=== PATIENT | male | born 2000 | race Caucasian/White ===

== ENCOUNTER 2018-02-01 15:11 | Observation (INO) | payer OTHER ==
[2018-02-01] MEDS: ONDANSETRON 4MG/2ML VIAL (J2405) IV ×2 (15:50→18:15)
[2018-02-01] MEDS: NS 1,000 ML IV ×3 (15:51→21:01)
[2018-02-01 16:14] LABS: BASO % 0.3 % (0.0-1.0); EOS % 0.2 % (0.0-3.0); HEMATOCRIT 51.8 % (42.0-52.0); HEMOGLOBIN 17.6 g/dl (13.5-17.5); IMMATURE GRANULOCYTE % 0.4 % (0-3.0); LYMPH # 1.1 10^3/uL (1.5-6.5); LYMPH % 11.8 % (24.0-44.0); MEAN CORPUSCULAR VOLUME 85.3 fl (80.0-96.0); MONO # 0.6 10^3/uL (0.0-0.8); MONO % 6.6 % (0.0-5.0); NEUTROPHILS # 7.2 10^3/uL (1.8-7.7); NEUTROPHILS % 80.7 % (36.0-66.0); PLATELET COUNT, AUTOMATED 301 10^3/uL (150-450); RED BLOOD COUNT 6.07 10^6/uL (4.30-6.10); RED CELL DISTRIBUTION WIDTH 12.6 % (11.5-14.5); WHITE BLOOD COUNT 8.9 10^3/uL (4.0-10.0)
[2018-02-01 16:39] LABS: ALBUMIN 4.8 GM/DL (3.2-5.2); ALKALINE PHOSPHATASE 177 U/L (45-117); ALT/SGPT 61 U/L (12-78); AMYLASE 25 U/L (25-115); AST/SGOT 71 U/L (7-37); BILIRUBIN,DIRECT 0.3 MG/DL (0.0-0.2); BILIRUBIN,TOTAL 1.4 MG/DL (0.2-1.0); BLOOD UREA NITROGEN 27 MG/DL (7-18); CALCIUM LEVEL 9.6 MG/DL (8.5-10.1); CARBON DIOXIDE LEVEL 28 MEQ/L (21-32); CHLORIDE LEVEL 95 MEQ/L (98-107); CREATININE FOR GFR 1.09 MG/DL (0.70-1.30); GLUCOSE, FASTING 131 MG/DL (70-100); LIPASE 52 U/L (73-393); POTASSIUM SERUM 4.2 MEQ/L (3.5-5.1); SODIUM LEVEL 135 MEQ/L (136-145); TOTAL PROTEIN 8.8 GM/DL (6.4-8.2); TROPONIN I < 0.02 NG/ML (< 0.10)
[2018-02-01 16:48] LABS: CPK CREATINE PHOSPHOKINASE 1567 U/L (39-308); MB/CK RELATIVE INDEX 1.14 (< OR =4)
[2018-02-01 16:51] LABS: ANION GAP 12 MEQ/L (8-16)
[2018-02-01] MEDS ORDERED: ISOVUE-370 76% 100ML VIAL (Q9967) As Ordered (19:07)
[2018-02-01 20:18] LABS: KETONE, URINE AUTO RFX 2+ mg/dL (NEGATIVE); LEUKOCYTE ESTERASE UR AUTO RFX NEGATIVE (NEGATIVE); NITRITE, URINE AUTO RFX NEGATIVE (NEGATIVE); RBC, URINE AUTO RFX 3 /HPF (0-3); SPECIFIC GRAVITY UR AUTO RFX 1.041 (1.002-1.035); SQUAM EPITHELIAL CELL UR AURFX 0 /HPF (0-6); WBC, URINE AUTO RFX 1 /HPF (0-3)
[2018-02-01] MEDS: MORPHINE 4 MG/ML 1ML VIAL/SYRINGE (J2270) IV (21:00)
[2018-02-01] MEDS: GI COCKTAIL 50ML BTL(HYOSCYAMINE/MAALOX/LIDOCAINE VISCOUS)(1:3:1) PO (21:01)
[2018-02-01] MEDS: PANTOPRAZOLE 40MG INJ (PROTONIX) (C9113) IV (21:06)
[2018-02-01] MEDS ORDERED: NS 1,000 ML IV (21:25)
[2018-02-01] MEDS ORDERED: ACETAMINOPHEN TAB 650MG DOSE (2X325MG) PO (21:30)
[2018-02-02] MEDS: ONDANSETRON 4MG/2ML VIAL (J2405) IV ×3 (01:27→18:10)
[2018-02-02] MEDS: NS 1,000 ML IV (02:26)
[2018-02-02] MEDS: SUCRALFATE SUSP 1GM/10ML UD PO ×4 (07:47→21:26)
[2018-02-02] MEDS: ENOXAPARIN 40 MG/0.4 ML SYRINGE (J1650) SC (07:48)
[2018-02-02] MEDS: KCL 20MEQ in NS 1000ML 1,000 ML IV ×2 (07:48→14:47)
[2018-02-02 07:50] LABS: HEMATOCRIT 39.4 % (42.0-52.0); MEAN CORPUSCULAR VOLUME 87.8 fl (80.0-96.0); PLATELET COUNT, AUTOMATED 212 10^3/uL (150-450); RED BLOOD COUNT 4.49 10^6/uL (4.30-6.10); RED CELL DISTRIBUTION WIDTH 12.7 % (11.5-14.5); WHITE BLOOD COUNT 6.4 10^3/uL (4.0-10.0)
[2018-02-02 08:17] LABS: ALBUMIN 2.9 GM/DL (3.2-5.2); ALBUMIN/GLOBULIN RATIO 1.21 (1.00-1.93); ALKALINE PHOSPHATASE 105 U/L (45-117); ALT/SGPT 38 U/L (12-78); ANION GAP 7 MEQ/L (8-16); AST/SGOT 35 U/L (7-37); BLOOD UREA NITROGEN 12 MG/DL (7-18); CALCIUM LEVEL 7.7 MG/DL (8.5-10.1); CARBON DIOXIDE LEVEL 26 MEQ/L (21-32); CHLORIDE LEVEL 110 MEQ/L (98-107); CPK CREATINE PHOSPHOKINASE 731 U/L (39-308); GLUCOSE, FASTING 78 MG/DL (70-100); MAGNESIUM LEVEL 1.8 MG/DL (1.8-2.4); POTASSIUM SERUM 4.4 MEQ/L (3.5-5.1); SODIUM LEVEL 143 MEQ/L (136-145); TOTAL PROTEIN 5.3 GM/DL (6.4-8.2); TROPONIN I 0.02 NG/ML (< 0.10)
[2018-02-02 10:12] LABS: CK-MB VALUE MASS 6.1 NG/ML (<3.6); MB/CK RELATIVE INDEX 0.83 (< OR =4)
[2018-02-02 11:56] LABS: AMPHETAMINES LEVEL URINE NEGATIVE (NEGATIVE); BARBITURATES URINE NEGATIVE (NEGATIVE); BENZODIAZEPINES URINE NEGATIVE (NEGATIVE); CANNABINOIDS URINE NEGATIVE (NEGATIVE); COCAINE METABOLITE URINE NEGATIVE (NEGATIVE); METHADONE URINE NEGATIVE (NEGATIVE); OPIATES URINE NEGATIVE (NEGATIVE); PHENCYCLIDINE URINE NEGATIVE (NEGATIVE)
[2018-02-02 15:43] LABS: CK-MB VALUE MASS 5.2 NG/ML (<3.6); CPK CREATINE PHOSPHOKINASE 641 U/L (39-308); MB/CK RELATIVE INDEX 0.81 (< OR =4); TROPONIN I 0.02 NG/ML (< 0.10)
[2018-02-02] MEDS: PROCHLORPERAZINE 10 MG/2 ML VIAL (J0780) IV (15:55)
[2018-02-02] MEDS: PANTOPRAZOLE 40MG INJ (PROTONIX) (C9113) IV (21:26)
[2018-02-03 00:55] LABS: CPK CREATINE PHOSPHOKINASE 429 U/L (39-308); TROPONIN I < 0.02 NG/ML (< 0.10)
[2018-02-03 00:56] LABS: CK-MB VALUE MASS 3.5 NG/ML (<3.6); MB/CK RELATIVE INDEX 0.81 (< OR =4)
[2018-02-03 06:57] LABS: HEMATOCRIT 40.2 % (42.0-52.0); HEMOGLOBIN 13.4 g/dl (13.5-17.5); MEAN CORPUSCULAR HGB CONC 33.3 g/dl (32.0-36.5); PLATELET COUNT, AUTOMATED 202 10^3/uL (150-450); RED BLOOD COUNT 4.62 10^6/uL (4.30-6.10); RED CELL DISTRIBUTION WIDTH 12.3 % (11.5-14.5); WHITE BLOOD COUNT 4.8 10^3/uL (4.0-10.0)
[2018-02-03 07:21] LABS: ALBUMIN 2.9 GM/DL (3.2-5.2); ALBUMIN/GLOBULIN RATIO 1.16 (1.00-1.93); ALKALINE PHOSPHATASE 109 U/L (45-117); ALT/SGPT 35 U/L (12-78); ANION GAP 10 MEQ/L (8-16); AST/SGOT 25 U/L (7-37); BILIRUBIN,TOTAL 0.7 MG/DL (0.2-1.0); BLOOD UREA NITROGEN 6 MG/DL (7-18); CALCIUM LEVEL 8.3 MG/DL (8.5-10.1); CARBON DIOXIDE LEVEL 26 MEQ/L (21-32); CHLORIDE LEVEL 107 MEQ/L (98-107); CREATININE FOR GFR 0.58 MG/DL (0.70-1.30); GLUCOSE, FASTING 87 MG/DL (70-100); MAGNESIUM LEVEL 1.6 MG/DL (1.8-2.4); POTASSIUM SERUM 4.3 MEQ/L (3.5-5.1); SODIUM LEVEL 143 MEQ/L (136-145); TOTAL PROTEIN 5.4 GM/DL (6.4-8.2)
[2018-02-03] MEDS: SUCRALFATE SUSP 1GM/10ML UD PO ×2 (07:50→12:29)
[2018-02-03] MEDS: ENOXAPARIN 40 MG/0.4 ML SYRINGE (J1650) SC (09:14)
== END 2018-02-03 15:13 | disposition home or self-care (01) ==
LOC: M ED 15:11 → M ED INP 21:25 → M PED 22:45
DX: R11.2 Nausea with vomiting, unspecified (principal); R10.11 Right upper quadrant pain; K52.9 Noninfective gastroenteritis and colitis, unspecified; M62.82 Rhabdomyolysis; T67.3XXA Heat exhaustion, anhydrotic, initial encounter; Z79.899 Other long term (current) drug therapy
CPT/HCPCS: C9113

== ENCOUNTER 2018-04-09 14:33 | Emergency (ER) | payer OTHER ==
[2018-04-09] MEDS: NS 1,000 ML IV (17:30)
[2018-04-09] MEDS: ONDANSETRON 4MG/2ML VIAL (J2405) IV (17:30)
[2018-04-09 18:09] LABS: BASO % 0.6 % (0.0-1.0); EOS # 0.1 10^3/uL (0.0-0.50); EOS % 1.5 % (0.0-3.0); HEMATOCRIT 46.1 % (42.0-52.0); HEMOGLOBIN 15.7 g/dl (13.5-17.5); IMMATURE GRANULOCYTE % 0.3 % (0-3.0); LYMPH # 2.3 10^3/uL (1.5-6.5); LYMPH % 32.9 % (24.0-44.0); MEAN CORPUSCULAR HGB CONC 34.1 g/dl (32.0-36.5); MEAN CORPUSCULAR VOLUME 85.1 fl (80.0-96.0); MONO # 0.4 10^3/uL (0.0-0.8); MONO % 5.5 % (0.0-5.0); NEUTROPHILS # 4.1 10^3/uL (1.8-7.7); NEUTROPHILS % 59.2 % (36.0-66.0); PLATELET COUNT, AUTOMATED 313 10^3/uL (150-450); RED BLOOD COUNT 5.42 10^6/uL (4.30-6.10); RED CELL DISTRIBUTION WIDTH 12.9 % (11.5-14.5); WHITE BLOOD COUNT 6.9 10^3/uL (4.0-10.0)
[2018-04-09 18:16] LABS: INR 1.01; PROTHROMBIN TIME 13.4 SECONDS (12.1-14.4)
[2018-04-09 18:38] LABS: ALBUMIN 4.7 GM/DL (3.2-5.2); ALBUMIN/GLOBULIN RATIO 1.38 (1.00-1.93); ALKALINE PHOSPHATASE 142 U/L (45-117); ALT/SGPT 28 U/L (12-78); ANION GAP 6 MEQ/L (8-16); AST/SGOT 11 U/L (7-37); BILIRUBIN,DIRECT 0.2 MG/DL (0.0-0.2); BILIRUBIN,TOTAL 0.5 MG/DL (0.2-1.0); BLOOD UREA NITROGEN 13 MG/DL (7-18); CALCIUM LEVEL 9.3 MG/DL (8.5-10.1); CARBON DIOXIDE LEVEL 31 MEQ/L (21-32); CHLORIDE LEVEL 103 MEQ/L (98-107); CREATININE FOR GFR 0.79 MG/DL (0.70-1.30); GLUCOSE, FASTING 97 MG/DL (70-100); POTASSIUM SERUM 3.6 MEQ/L (3.5-5.1); SODIUM LEVEL 140 MEQ/L (136-145); TOTAL PROTEIN 8.1 GM/DL (6.4-8.2)
[2018-04-09 18:40] LABS: CPK CREATINE PHOSPHOKINASE 87 U/L (39-308); LIPASE 44 U/L (73-393); MB/CK RELATIVE INDEX 1.15 (< OR =4); TROPONIN I < 0.02 NG/ML (< 0.10)
[2018-04-09] MEDS ORDERED: ISOVUE-370 76% 100ML VIAL (Q9967) As Ordered (18:43)
== END 2018-04-09 19:42 | disposition home or self-care (01) ==
LOC: M ED 14:33
DX: K20.9 Esophagitis, unspecified (principal); R11.10 Vomiting, unspecified
CPT/HCPCS: J2405

== ENCOUNTER 2018-05-25 12:31 | Day surgery (SDC) | payer OTHER ==
[~2018-05-25] VITALS: Ht 170.2 cm; Wt 68.9 kg
[~2018-05-25 12:31] MED LIST: MELA10CA PO; NS 1,000 ML IV ONE; PANT40TA3 PO; PRIL20TA2 PO; SUCR1TA PO; ZOFR4TAB14 PO; ZOFR4TAB16 PO
[2018-05-25] MEDS ORDERED: PROPOFOL 200 MG/20 ML VIAL As Ordered ONE (14:07)
[2018-05-25] MEDS ORDERED: LIDOCAINE 2% INJ 100 MG/5 ML SDV (FOR ANES.) As Ordered ONE (14:09)
[2018-05-25] MEDS ORDERED: fentaNYL 100 MCG/2 ML INJECTION (J3010) As Ordered ONE (14:44)
[2018-05-25] MEDS ORDERED: ONDANSETRON 4MG/2ML VIAL (J2405) As Ordered ONE (14:47)
--- NOTE | 2018-05-25 15:22 | ROOR ---
Patient Name: Anderas Adam Procedure Date: 05/25/2018 3:00 PM Date of : 2000 Age: 18 Room: [facility] Gender: Male Note Status: Finalized Procedure: Upper GI endoscopy Indications: Persistent vomiting of unknown cause, Abnormal CT of the GI tract Providers: John Lynn MD Referring MD: PINEDA SIMPSON MD Requesting Provider: Medicines: Monitored Anesthesia Care Complications: No immediate complications. Procedure: Pre-Anesthesia Assessment: - Prior to the procedure, a History and Physical was performed, and patient medications and allergies were reviewed. The patient is competent. The risks and benefits of the procedure and the sedation options and risks were discussed with the patient. All questions were answered and informed consent was obtained. Patient identification and proposed procedure were verified by the physician, the nurse and the anesthesiologist in the procedure room. Mental Status Examination: alert and oriented. Airway Examination: normal oropharyngeal airway and neck mobility. Respiratory Examination: clear to auscultation. CV Examination: normal. Prophylactic Antibiotics: The patient does not require prophylactic antibiotics. Prior Anticoagulants: The patient has taken no previous anticoagulant or antiplatelet agents. ASA Grade Assessment: II - A patient with mild systemic disease. After reviewing the risks and benefits, the patient was deemed in satisfactory condition to undergo the procedure. The anesthesia plan was to use monitored anesthesia care (MAC). Immediately prior to administration of medications, the patient was re-assessed for adequacy to receive sedatives. The heart rate, respiratory rate, oxygen saturations, blood pressure, adequacy of pulmonary ventilation, and response to care were monitored throughout the procedure. The physical status of the patient was re-assessed after the procedure. The Endoscope was introduced through the mouth, and advanced to the second part of duodenum. The upper GI endoscopy was accomplished without difficulty. The patient tolerated the procedure well. Findings: LA Grade A (one or more mucosal breaks less than 5 mm, not extending between tops of 2 mucosal folds) esophagitis with no bleeding was found in the distal esophagus. Biopsies were taken with a cold forceps for histology. Verification of patient identification for the specimen was done by the physician and nurse using the patient's name, date and medical record number. Estimated blood loss was minimal. The Z-line was irregular and was found 39 cm from the incisors. One 20 mm submucosal papule (nodule) with no bleeding and no stigmata of recent bleeding was found in the gastric antrum. Biopsies were taken with a cold forceps for histology. The duodenal bulb and second portion of the duodenum were normal. Biopsies were taken with a cold forceps for histology. Impression: - LA Grade A reflux esophagitis. Biopsied. - Z-line irregular, 39 cm from the incisors. - One submucosal papule (nodule) found in the stomach. Biopsied. - Normal duodenal bulb and second portion of the duodenum. Biopsied. Recommendation: - Patient has a contact number available for emergencies. The signs and symptoms of potential delayed complications were discussed with the patient. Return to normal activities tomorrow. Written discharge instructions were provided to the patient. - Resume previous diet. - Continue present medications. - Await pathology results. - Follow an antireflux regimen. - Perform an upper endoscopic ultrasound (UEUS) at appointment to be scheduled. - Based on the biopsy results you will receive a phone call from GI clinic in 2-3 weeks to review the pathology results AND/OR your results will be faxed to your Primary care physician. - Return to primary care physician. John Lynn MD John Lynn MD 05/25/2018 3:21:35 PM This report has been signed electronically. Number of Addenda: 0 Note Initiated On: 05/25/2018 3:00 PM Estimated Blood Loss: Estimated blood loss was minimal.
[2018-05-25 15:45] VITALS: BP 132/87
== END 2018-05-25 15:52 | disposition home or self-care (01) ==
LOC: M OPP 12:31
PROVIDERS: ATTEND Internal Medicine Gastroenterology
DX: K21.0 Gastro-esophageal reflux disease with esophagitis (principal); K22.8 Other specified diseases of esophagus; K31.89 Other diseases of stomach and duodenum; R93.3 Abnormal findings on diagnostic imaging of other parts of digestive tract; R11.10 Vomiting, unspecified; R01.1 Cardiac murmur, unspecified; Z80.0 Family history of malignant neoplasm of digestive organs
CPT/HCPCS: 43239; 88305; J2405; J3010

== ENCOUNTER 2019-07-16 05:46 | Inpatient (IN) | payer OTHER ==
[~2019-07-16] VITALS: Ht 170.2 cm; Wt 65.9 kg
[2019-07-16] VITALS (10 sets, daily range): BP systolic 122–135; BP diastolic 58–76
[~2019-07-16 05:46] MED LIST changes: -NS 1,000 ML IV ONE
[2019-07-16] MEDS ORDERED: ACET1TAB55 PO (05:53)
[2019-07-16] MEDS ORDERED: IBUP80TA PO (05:53)
[2019-07-16] MEDS ORDERED: [UNRECOGNIZED DRUG - CODE] IM (05:53)
[2019-07-16] MEDS ORDERED: NS 1,000 ML IV ONE (06:30)
[2019-07-16] MEDS ORDERED: ACETAMINOPHEN TAB 650MG DOSE (2X325MG) PO ONE (06:30)
[2019-07-16 06:37] LABS: HEMATOCRIT 49.3 % (42.0-52.0); HEMOGLOBIN 16.6 g/dl (13.5-17.5); MEAN CORPUSCULAR HEMOGLOBIN 28.4 pg (27.0-33.0); MEAN CORPUSCULAR HGB CONC 33.7 g/dl (32.0-36.5); MEAN CORPUSCULAR VOLUME 84.4 fl (80.0-96.0); PLATELET COUNT, AUTOMATED 171 10^3/uL (150-450); RED BLOOD COUNT 5.84 10^6/uL (4.30-6.10); WHITE BLOOD COUNT 15.8 10^3/uL (4.0-10.0)
[2019-07-16 06:50] LABS: ALBUMIN 3.4 GM/DL (3.2-5.2); ALT/SGPT 691 U/L (12-78); BILIRUBIN,DIRECT 2.8 MG/DL (0.0-0.2); BILIRUBIN,TOTAL 3.3 MG/DL (0.2-1.0); BLOOD UREA NITROGEN 10 MG/DL (7-18); CALCIUM LEVEL 8.6 MG/DL (8.5-10.1); CARBON DIOXIDE LEVEL 27 MEQ/L (21-32); CHLORIDE LEVEL 95 MEQ/L (98-107); CREATININE FOR GFR 1.16 MG/DL (0.70-1.30); GLOMERULAR FILTRATION RATE > 60.0 (>60); GLUCOSE, FASTING 121 MG/DL (70-100); LIPASE 89 U/L (73-393); POTASSIUM SERUM 4.2 MEQ/L (3.5-5.1); SODIUM LEVEL 133 MEQ/L (136-145); TOTAL PROTEIN 7.7 GM/DL (6.4-8.2)
[2019-07-16] MEDS ORDERED: ONDANSETRON 4MG/2ML VIAL (J2405) IV ONE (07:00)
[2019-07-16] MEDS ORDERED: KETOROLAC 30 MG/ML VIAL (J1885) IV ONE (07:00)
[2019-07-16] MEDS ORDERED: methylPREDNISolone INJ 125 MG/2 ML VIAL (J2930) IV ONE (07:00)
[2019-07-16 07:07] LABS: ATYPICAL LYMPH 20 % (0-5); LYMPHOCYTES 49 % (16-44); MONOCYTES 1 % (0-5); NEUTROPHILS 28 % (28-66)
[2019-07-16 07:08] LABS: PLATELET ESTIMATE NORMAL (NORMAL)
--- NOTE | 2019-07-16 07:52 | REPVR ---
PROCEDURE INFORMATION: Exam: US Abdomen Limited Exam date and time: 07/16/2019 7:35 AM Age: 19 years old Clinical indication: Vomiting; Abdominal pain; Additional Info: + mono with abd pain and vomiting R/O ruptured spleen TECHNIQUE: Imaging protocol: Real-time ultrasound of the abdomen with image documentation. Examination is focused on the region of clinical interest. COMPARISON: Abdomen, limited US 02/02/2018 2:16 PM FINDINGS: Left kidney: Left kidney measures 10.8 cm in length. No renal masses. No left hydronephrosis. Spleen: Spleen measures 15.9 x 13.1 x 6.0 cm. No splenic lesions. No splenic rupture. There are multiple splenules present. Intraperitoneal space: No perisplenic fluid. IMPRESSION: 1. Moderate splenomegaly. 2. No splenic rupture. 3. No perisplenic fluid. Electronically signed by: Rylee Torres On 07/16/2019 07:51:51 AM
--- NOTE | 2019-07-16 08:59 | HPEPDOC ---
[facility] Medical History & Physical Date of Admission Jul 16, 2019 Date of Service: Jul 16, 2019 History and Physical CHIEF COMPLAINT: malaise, sob HISTORY OF PRESENT ILLNESS: 19 yo male with no PMHx, recently diagnosed with infectious mononucleosis, presents for worsening malaise, shortness of breath. He admits to drooling, nausea, vomiting. Denies chest pain, headaches, changes in vision. PAST MEDICAL HISTORY: Denies ALLERGIES: Please see below. REVIEW OF SYSTEMS: Negative except as per HPI. HOME MEDICATIONS: Please see below. PHYSICAL EXAMINATION: VITAL SIGNS: See below General: NAD, lying comfortably in bed HEENT: NC/AT, edematousnarrowed airway/edematous tonsils, EOMI, PERRL, cervical lymphadenopathy Lungs: CTA B/L Heart: +S1S2, RRR Abd: soft, mild tenderness, ND, +BS LABORATORY DATA: See below. MICROBIOLOGY: Please see below. ASSESSMENT: 19 yo male recently diagnosed with mono, admitted for concerns of compromised airway from lymphadenopathy. #SOB - continuous pulse ox - elevated head of bed - decadron 10 IV q8h - NPO/IVF - ENT c/s pending - admit to ICU #mono - atypical lymphocytosis - supportive care in addition to above #transaminitis - secondary to mono #DVT prophylaxis - not indicated Vital Signs Vital Signs Date Time Temp Pulse Resp B/P (MAP) Pulse Ox O2 Delivery O2 Flow Rate FiO2 07/16/19 08:01 98.6 99 20 118/57 (77) 96 Room Air Laboratory Data Labs 24H Laboratory Tests 2 07/16/19 06:20: Lymphocytes # (Auto) , Nucleated Red Blood Cells % (auto) 0.0, Neutrophils 28, Band Neutrophils 2, Lymphocytes (Manual) 49H, Monocytes (Manual) 1, Atypical Lymphocytes 20H, Red Blood Cell Morphology NORMAL, Platelet Estimate NORMAL, Anion Gap 11, Glomerular Filtration Rate > 60.0, Calcium Level 8.6, Total Bilirubin 3.3H, Direct Bilirubin 2.8H, Aspartate Amino Transf (AST/SGOT) 363H, Alanine Aminotransferase (ALT/SGPT) 691H, Alkaline Phosphatase 290H, Total Protein 7.7, Albumin 3.4, Albumin/Globulin Ratio 0.79L, Lipase 89 CBC/BMP Laboratory Tests 07/16/19 06:20 Home Medications Scheduled Melatonin (Melatonin) 10 Mg Cap, 10 MG PO QHS Penicillin G Benzathine (Bicillin l-A) 1,200,000 Unit/2 Ml Syringe, 1 DOSE IM ONCE RECEIVED AT [facility] Scheduled PRN Acetaminophen (Acetaminophen) 325 Mg Tablet, 325 MG PO TID PRN for PAIN / FEVER Ibuprofen (Ibuprofen) 800 Mg Tablet, 800 MG PO TID PRN for PAIN / FEVER Allergies Coded Allergies: No Known Allergies (Unverified , 05/15/18) A-FIB/CHADSVASC A-FIB History Current/History of A-Fib/PAF?: No EAGLE TRAORE MD Jul 16, 2019 08:58
[2019-07-16] MEDS: NS 1,000 ML IV SCH ×2 (10:12→20:15)
[2019-07-16] MEDS ORDERED: ONDANSETRON 4MG/2ML VIAL (J2405) IV PRN (10:45)
--- NOTE | 2019-07-16 12:00 | CR.PDOC ---
General Surgery Consultation Date of Consultation 07/16/19 History and Physical CONSULT REPORT FOR: ICU to otolaryngology REASON FOR CONSULTATION: Infectious mononucleosis with shortness of breath HISTORY OF PRESENT ILLNESS: This is a 19-year-old male with recent history of fatigue, sore throat and fever his throat got acutely worse over the last 24 hours and has been having lots of pain when he swallows so much so that he is choosing to spit his saliva out. He also started feeling that it was difficult to breathe and so he came into the ER. He was diagnosed with mononucleosis. Due to the fact that he is not tolerating liquids. He was admitted to the hospital and we chose to admit him to the ICU due to his concerns about shortness of breath. He has right now, however breathing fine and resting comfortably. He does not have any history of tonsil infections in the past. Never had any head and neck surgeries. No previous history of sleep apnea PAST MEDICAL HISTORY: 1. None. PAST SURGICAL HISTORY: INCLUDES: 1. None. PREVIOUS ANESTHESIA REACTIONS: None ALLERGIES: Please see below. FAMILY HISTORY: Noncontributory. HOME MEDICATIONS: Please see below. REVIEW OF SYSTEMS: GENERAL: [Denies chills, reports weight gain, reports feeling febrile yesterday]. HEENT: Denies blurred vision and double vision. See HPI NECK: Denies any neck pain]. CARDIOVASCULAR: [Denies chest pain and palpitations]. MUSCULOSKELETAL: [Denies arthralgias, back pain and thrombophlebitis]. SKIN: [Denies rash]. NEUROLOGIC: [Denies headache, stroke and transient ischemic attack]. PSYCHIATRIC: [Denies anxiety and depression]. ENDOCRINE: [Denies thyroid disease]. HEMATOLOGY/ONCOLOGY: [Denies bleeding or clotting disorder]. HEART: [Denies any chest pains, palpitations, paroxysmal dyspnea, orthopnea]. PULMONARY: [Denies chronic cough, dyspnea and wheezing]. GASTROINTESTINAL: [Denies rectal bleeding, family history of colon cancer, constipation, diarrhea, dysphagia, heartburn and jaundice]. GENITOURINARY: [Denies dysuria, frequency, hematuria and nocturia]. ENDOCRINE: [Denies polydipsia, polyphagia, polyuria, heat or cold intolerance]. INFECTIOUS: [Denies any recent upper respiratory tract infection, UTI, need for use of antibiotics]. NUTRITION: [Reports good appetite]. PHYSICAL EXAMINATION: VITALS SIGNS: Please see below. GENERAL APPEARANCE:[Patient seen, laying in bed, awake, alert, and oriented. Comfortable, in no acute distress]. FOCUSED HEENT: EARS: Bilateral external auditory canals are clear and patent with normal appearance of the bilateral tympanic membranes. No evidence of middle ear effusion bilaterally. NOSE: Bilateral nares are clear and patent. Normal appearance of bilateral inferior turbinates. Septum is intact and midline. ORAL CAVITY: Normal appearance of the gingiva and dentition. Tongue is freely mobile. Floor mouth is soft. Tonsils are 4+ with extensive exudates. NECK: Neck is soft and supple. There is evidence of moderate lymphadenopathy bilaterally in levels 2 through 4. Normal examination of the thyroid. Submandibular and parotid glands LABORATORY DATA: Please see below. IMAGING STUDIES: None. IMPRESSION AND PLAN: 1. Infectious mononucleosis. No need for surgical intervention at this time, the patient has a safe airway, and for the next few days. May have intermittent apneic episodes while sleeping as well as persistent snoring, however, she should not have any issues with oxygen saturation. As long as he is kept and an inclined position, I believe that it is safe to transfer them out of the ICU. He should be on 10 mg of Decadron every 8 hours for the next 24 hours and if after 24 hours. He is improving and tolerating enough liquids. He can be discharged home with a steroid taper for pain control. I recommend NSAIDs such as liquid Motrin or liquid, Advil above. All fluid resuscitation is paramount. I discussed with the patient that although she may start to feel better over the course of the next week. His tonsils may remain enlarged and as long as they do not incur recurrent infections and she is not having sleep apnea is no need to follow up if he has concerns in the future he can feel free to follow up with the ENT department Vital Signs Vital Signs Date Time Temp Pulse Resp B/P (MAP) Pulse Ox O2 Delivery O2 Flow Rate FiO2 07/16/19 09:01 64 22 94 Nasal Cannula 2.0 07/16/19 09:00 117/59 (78) 07/16/19 08:01 98.6 Laboratory Data Labs 24H Laboratory Tests 2 07/16/19 06:20: Lymphocytes # (Auto) , Nucleated Red Blood Cells % (auto) 0.0, Neutrophils 28, Band Neutrophils 2, Lymphocytes (Manual) 49H, Monocytes (Manual) 1, Atypical Lymphocytes 20H, Red Blood Cell Morphology NORMAL, Platelet Estimate NORMAL, Anion Gap 11, Glomerular Filtration Rate > 60.0, Calcium Level 8.6, Total Bilirubin 3.3H, Direct Bilirubin 2.8H, Aspartate Amino Transf (AST/SGOT) 363H, Alanine Aminotransferase (ALT/SGPT) 691H, Alkaline Phosphatase 290H, Total Protein 7.7, Albumin 3.4, Albumin/Globulin Ratio 0.79L, Lipase 89 CBC/BMP Laboratory Tests 07/16/19 06:20 Home Medications Scheduled Melatonin (Melatonin) 10 Mg Cap, 10 MG PO QHS, (Reported) Penicillin G Benzathine (Bicillin l-A) 1,200,000 Unit/2 Ml Syringe, 1 DOSE IM ONCE, (Reported) RECEIVED AT [facility] Scheduled PRN Acetaminophen (Acetaminophen) 325 Mg Tablet, 325 MG PO TID PRN for PAIN / FEVER, (Reported) Ibuprofen (Ibuprofen) 800 Mg Tablet, 800 MG PO TID PRN for PAIN / FEVER, (Reported) Allergies Coded Allergies: No Known Allergies (Unverified , 05/15/18) EMILY HERNANDEZ MD Jul 16, 2019 12:00
[2019-07-16] MEDS ORDERED: KETOROLAC 30 MG/ML VIAL (J1885) IV SCH (14:00)
[2019-07-16] MEDS: KETOROLAC 30 MG/ML VIAL (J1885) IV SCH ×2 (14:02→22:45)
[2019-07-16] MEDS: dexameTHASONE 20 MG/5 ML VIAL (J1100) IV SCH ×2 (14:05→22:44)
[2019-07-16] MEDS: CHLORASEPTIC SPRAY MT PRN (21:15)
[2019-07-17] VITALS (8 sets, daily range): BP systolic 120–140; BP diastolic 60–80; O2SAT 99
[2019-07-17] MEDS: CHLORASEPTIC SPRAY MT PRN ×2 (02:00)
[2019-07-17] MEDS: KETOROLAC 30 MG/ML VIAL (J1885) IV PRN ×3 (02:29→16:46)
[2019-07-17 05:24] LABS: HEMATOCRIT 44.7 % (42.0-52.0); HEMOGLOBIN 14.7 g/dl (13.5-17.5); MEAN CORPUSCULAR HEMOGLOBIN 28.3 pg (27.0-33.0); MEAN CORPUSCULAR HGB CONC 32.9 g/dl (32.0-36.5); PLATELET COUNT, AUTOMATED 172 10^3/uL (150-450); WHITE BLOOD COUNT 11.9 10^3/uL (4.0-10.0)
[2019-07-17] MEDS: dexameTHASONE 20 MG/5 ML VIAL (J1100) IV SCH ×3 (05:38→21:53)
[2019-07-17] MEDS: NS 1,000 ML IV SCH ×3 (05:38→21:53)
[2019-07-17 05:53] LABS: ALBUMIN 2.5 GM/DL (3.2-5.2); ALT/SGPT 425 U/L (12-78); BILIRUBIN,TOTAL 1.8 MG/DL (0.2-1.0); BLOOD UREA NITROGEN 18 MG/DL (7-18); CALCIUM LEVEL 7.8 MG/DL (8.5-10.1); CARBON DIOXIDE LEVEL 26 MEQ/L (21-32); CHLORIDE LEVEL 107 MEQ/L (98-107); CREATININE FOR GFR 0.77 MG/DL (0.70-1.30); GLOMERULAR FILTRATION RATE > 60.0 (>60); GLUCOSE, FASTING 139 MG/DL (70-100); POTASSIUM SERUM 4.6 MEQ/L (3.5-5.1); SODIUM LEVEL 140 MEQ/L (136-145); TOTAL PROTEIN 6.5 GM/DL (6.4-8.2)
--- NOTE | 2019-07-17 08:58 | IPNPDOC ---
Text Note Date of Service The patient was seen on 07/17/19. NOTE SUBJECTIVE: Patient was seen at bedside today. He was unable to sleep last night due to continuing throat pain. He continues to cough up "chunks of blood" and complain of chest heaviness, but has otherwise not had dyspnea. His mouth is more comfortable with the moistened mouth swabs. He states that he has been able to urinate, but the urine remains very dark in color. He has not passed any stool. Holistically, pt states that his complaints have not changed, but he is more comfortable now that he has been receiving care. Pt has no further complaints at this time. OBJECTIVE: VITALS: Please see below. GENERAL: Pt appears stated age, pale, and is propped up in bed in no acute distress. HEENT: Normocephalic, atraumatic. Multiple purulent lesions present in throat. Significant and profound posterior cervical and anterior cervical chain lymphadenopathy with tenderness. Pt's breath is pungent. CARDIOVASCULAR: Regular rate and rhythm. No murmurs, rubs, or gallops. PULMONARY: Clear to auscultation b/l. No wheezes, rales, or rhonchi. ABDOMEN: Soft , nontender, normal bowel sounds. EXTREMITIES: No peripheral edema. PSYCHIATRIC: Pt is calm and cooperative. Full affect. Pt answers questions appropriately. ASSESSMENT: Pt is a 19-year-old male with recent diagnosis of infectious mononucleosis who presented to the [facility] emergency department complaining of worsening dyspnea, dysphagia, odynophagia, and coughing up blood clots and has been admitted for protection of airway and supportive care. PLAN: 1. Dyspnea and dysphagia and odynophagia. secondary to hugely enlarged enlarged tonsils with exudates secondary to mononucleosis - Consultation by ENT was requested and completed by Brendon Persaud MD, and his assistance is appreciated. - Continue supportive IV fluids. Advised maintaining elevated head position, No Airway compromise seen. - Pt made himself NPO several days ago per throat pain and has therefore had very little nutrition recently. He tried taking sips, but did not tolerate it due to pain. We will plan to upgrade his diet to clear liquids if possible. Continuing pain management with ketorolac, phenol spray, IV morphine, and viscous lidocaine. - Continue dexamethasone 10 mg IV q8h for the next 2-3 days and monitor for reduction of swelling. - Downgrade to med/surg. 2. Infectious mononucleosis - Continue supportive care. IVF, pain control. 3. Elevated transaminases, improving - Secondary to #2. Trending down. 5. DVT prophylaxis: Subcutaneous enoxaparin DISPOSITION: Discharge pending clinical improvement, likely >48 hours from now. VS,Fishbone, I+O VS, Fishbone, I+O Laboratory Tests 07/17/19 05:00 Vital Signs Date Time Temp Pulse Resp B/P (MAP) Pulse Ox O2 Delivery O2 Flow Rate FiO2 07/17/19 05:00 73 18 125/63 (83) 97 Room Air 07/17/19 04:00 98.3 07/16/19 09:01 2.0 I&O- Last 24 Hours up to 6 AM 07/17/19 06:00 Intake Total 1800 ml Output Total 725 ml Balance 1075 ml GME ATTESTATION GME ATTESTATION My faculty preceptor for this patient encounter was physically present during the encounter and was fully available. All aspects of the patient interview, examination, medical decision making process, and medical care plan development were reviewed and approved by the faculty preceptor. The faculty preceptor is aware and concurs with the plan as stated in the body of this note and will attest to such by his/her cosignature. ATTENDING NOTE I personally saw and evaluated the patient. I agree with the findings and the plan of care documented above in the resident/ medical student note. ABILIO SHARMA OMS-III Jul 17, 2019 07:55 WANDY APPIAH MD Jul 17, 2019 20:46
[2019-07-17] MEDS ORDERED: MORPHINE 2 MG/ML 1ML VIAL (J2270) IV ONE (10:30)
[2019-07-17] MEDS: MORPHINE 2 MG/ML 1ML VIAL (J2270) IV PRN ×3 (14:58→20:01)
[2019-07-17] MEDS ORDERED: MORPHINE 4 MG/ML 1ML VIAL/SYRINGE (J2270) IV PRN (15:00)
[2019-07-17] MEDS: LIDOCAINE VISCOUS 2% SOLN 15ML UDC SS PRN (20:01)
[2019-07-18] VITALS (7 sets, daily range): BP systolic 120–139; BP diastolic 65–71; O2SAT 95–96
[2019-07-18] MEDS: KETOROLAC 30 MG/ML VIAL (J1885) IV PRN ×4 (01:19→21:24)
[2019-07-18] MEDS: ACETAMINOPHEN 650 MG SUPP PR PRN ×2 (03:12→06:39)
[2019-07-18] MEDS: NS 1,000 ML IV SCH ×5 (03:12→19:08)
[2019-07-18] MEDS: MORPHINE 2 MG/ML 1ML VIAL (J2270) IV PRN ×4 (06:21→19:08)
[2019-07-18] MEDS: dexameTHASONE 20 MG/5 ML VIAL (J1100) IV SCH ×3 (06:22→21:24)
[2019-07-18 07:35] LABS: HEMOGLOBIN 13.5 g/dl (13.5-17.5); MEAN CORPUSCULAR HEMOGLOBIN 27.8 pg (27.0-33.0); MEAN CORPUSCULAR HGB CONC 32.1 g/dl (32.0-36.5); MEAN CORPUSCULAR VOLUME 86.6 fl (80.0-96.0); PLATELET COUNT, AUTOMATED 194 10^3/uL (150-450); RED BLOOD COUNT 4.85 10^6/uL (4.30-6.10); WHITE BLOOD COUNT 8.4 10^3/uL (4.0-10.0)
[2019-07-18] MEDS: ENOXAPARIN 40 MG/0.4 ML SYRINGE (J1650) SC SCH (07:46)
[2019-07-18] MEDS: LIDOCAINE VISCOUS 2% SOLN 15ML UDC SS PRN ×2 (07:46→12:05)
[2019-07-18 07:58] LABS: BLOOD UREA NITROGEN 14 MG/DL (7-18); CALCIUM LEVEL 7.8 MG/DL (8.5-10.1); CARBON DIOXIDE LEVEL 27 MEQ/L (21-32); CHLORIDE LEVEL 108 MEQ/L (98-107); CREATININE FOR GFR 0.82 MG/DL (0.70-1.30); GLOMERULAR FILTRATION RATE > 60.0 (>60); GLUCOSE, FASTING 122 MG/DL (70-100); MAGNESIUM LEVEL 2.2 MG/DL (1.8-2.4); PHOSPHORUS LEVEL 2.4 MG/DL (2.5-4.9); POTASSIUM SERUM 4.8 MEQ/L (3.5-5.1); SODIUM LEVEL 140 MEQ/L (136-145)
[2019-07-18 08:08] LABS: ATYPICAL LYMPH 6 % (0-5); BASOPHILS 1 % (0-1); LYMPHOCYTES 24 % (16-44); MONOCYTES 12 % (0-5); NEUTROPHILS 54 % (28-66)
[2019-07-18 08:09] LABS: ANISOCYTOSIS 1+; PLATELET ESTIMATE NORMAL (NORMAL)
--- NOTE | 2019-07-18 10:15 | IPNPDOC ---
Text Note Date of Service The patient was seen on 07/18/19. NOTE SUBJECTIVE: Patient was seen at bedside today. He continues to cough up "chunks of blood" and complain of chest heaviness, but has otherwise not had dyspnea. His mouth is more comfortable with the moistened mouth swabs, and he has been tolerating popsicles. He states that he has been able to urinate, but the urine remains very dark in color. He has not passed any stool. Pt states that he has been feeling feverish. Pt has no further complaints at this time. OBJECTIVE: VITALS: Please see below. GENERAL: Pt appears stated age, pale, and is propped up in bed in no acute d istress. HEENT: Normocephalic, atraumatic. Multiple purulent lesions present in throat. Significant and profound posterior cervical and anterior cervical chain lymphadenopathy with tenderness. Pt's breath is pungent. Mild nasal congestion present. Nasal turbinates erythematous and slightly boggy. Pt is almost exclusively mouth breathing. CARDIOVASCULAR: Regular rate and rhythm. No murmurs, rubs, or gallops. PULMONARY: Clear to auscultation b/l. No wheezes, rales, or rhonchi. ABDOMEN: No rashes, bumps, or bruises. Bowel sounds present in all 4 quadrants. Soft, nontender. EXTREMITIES: No peripheral edema. PSYCHIATRIC: Pt is calm and cooperative. Full affect. Pt answers questions appropriately. ASSESSMENT: Pt is a 19-year-old male with recent diagnosis of infectious mononucleosis who presented to the [facility] emergency department complaining of worsening dyspnea, dysphagia, odynophagia, and coughing up blood clots and has been admitted for protection of airway and supportive care. PLAN: 1. Dyspnea, dysphagia, and odynophagia secondary to hugely enlarged enlarged tonsils with exudates secondary to mononucleosis - Consultation by ENT was requested and completed by Brendon Persaud MD, and his assistance is appreciated. - No airway compromise evident. Mouth dryness exacerbated by consistent mouth breathing. Nasal passages show mild congestion. Ordered fluticasone nasal spray to promote nasal breathing. Ordered humidified O2 to improve mouth dryness. - Continue supportive IV fluids and maintain elevated head position. Pt has been tolerating popsicles. We will plan to upgrade his diet to clear liquids if possible. - Continuing pain management with ketorolac, phenol spray, IV morphine, and viscous lidocaine. - Continue dexamethasone 10 mg IV q8h for the next 24 hours and monitor for reduction of swelling. 2. Infectious mononucleosis - Continue supportive care. IVF, pain control. 3. Elevated transaminases, improving - Secondary to #2. Trending down. 5. DVT prophylaxis: Subcutaneous enoxaparin DISPOSITION: Discharge pending clinical improvement, likely >48 hours from now. VS,Fishbone, I+O VS, Fishbone, I+O Laboratory Tests 07/18/19 07:23 Vital Signs Date Time Temp Pulse Resp B/P (MAP) Pulse Ox O2 Delivery O2 Flow Rate FiO2 07/18/19 07:30 100.8 07/18/19 06:31 20 98 Room Air 07/18/19 04:00 98 130/70 (90) 07/16/19 09:01 2.0 I&O- Last 24 Hours up to 6 AM 07/18/19 06:00 Intake Total 3100 ml Output Total 1300 ml Balance 1800 ml GME ATTESTATION GME ATTESTATION My faculty preceptor for this patient encounter was physically present during the encounter and was fully available. All aspects of the patient interview, examination, medical decision making process, and medical care plan development were reviewed and approved by the faculty preceptor. The faculty preceptor is aware and concurs with the plan as stated in the body of this note and will attest to such by his/her cosignature. ATTENDING NOTE I personally saw and evaluated the patient. I agree with the findings and the plan of care documented above in the resident's note ABILIO SHARMA-III Jul 18, 2019 07:59 WANDY APPIAH MD Jul 19, 2019 11:53
[2019-07-18] MEDS: FLUTICASONE PROP 0.05% NASAL SPRAY 16 GM (FLONASE) NARES SCH ×2 (16:23→21:25)
[2019-07-19] MEDS: NS 1,000 ML IV SCH ×2 (05:24→09:51)
[2019-07-19] MEDS: KETOROLAC 30 MG/ML VIAL (J1885) IV PRN (05:24)
[2019-07-19] MEDS: dexameTHASONE 20 MG/5 ML VIAL (J1100) IV SCH ×2 (05:24→14:55)
[2019-07-19 06:45] VITALS: BP 140/64
[2019-07-19 07:02] LABS: HEMOGLOBIN 12.4 g/dl (13.5-17.5); MEAN CORPUSCULAR HEMOGLOBIN 28.4 pg (27.0-33.0); MEAN CORPUSCULAR HGB CONC 33.5 g/dl (32.0-36.5); MEAN CORPUSCULAR VOLUME 84.9 fl (80.0-96.0); PLATELET COUNT, AUTOMATED 207 10^3/uL (150-450); RED BLOOD COUNT 4.36 10^6/uL (4.30-6.10); WHITE BLOOD COUNT 9.2 10^3/uL (4.0-10.0)
[2019-07-19 07:24] LABS: BLOOD UREA NITROGEN 11 MG/DL (7-18); CALCIUM LEVEL 7.3 MG/DL (8.5-10.1); CARBON DIOXIDE LEVEL 24 MEQ/L (21-32); CHLORIDE LEVEL 105 MEQ/L (98-107); CREATININE FOR GFR 0.73 MG/DL (0.70-1.30); GLOMERULAR FILTRATION RATE > 60.0 (>60); GLUCOSE, FASTING 121 MG/DL (70-100); MAGNESIUM LEVEL 1.8 MG/DL (1.8-2.4); PHOSPHORUS LEVEL 2.7 MG/DL (2.5-4.9); POTASSIUM SERUM 4.2 MEQ/L (3.5-5.1); SODIUM LEVEL 137 MEQ/L (136-145)
[2019-07-19 07:30] LABS: ATYPICAL LYMPH 25 % (0-5); LYMPHOCYTES 15 % (16-44); METAMYELOCYTES 1 % (0-0); MONOCYTES 9 % (0-5); NEUTROPHILS 50 % (28-66)
[2019-07-19 07:31] LABS: ANISOCYTOSIS 1+; PLATELET ESTIMATE NORMAL (NORMAL)
[2019-07-19] MEDS: ENOXAPARIN 40 MG/0.4 ML SYRINGE (J1650) SC SCH (09:50)
[2019-07-19] MEDS: FLUTICASONE PROP 0.05% NASAL SPRAY 16 GM (FLONASE) NARES SCH (09:50)
--- NOTE | 2019-07-19 10:09 | IPNPDOC ---
Text Note Date of Service The patient was seen on 07/19/19. NOTE SUBJECTIVE: Patient was seen at bedside today. He states that he has not been dyspneic, and his sensation of chest heaviness has improved. He states that his cough produces only a scant amount of blood at this point. He was advanced to a full liquid diet, and he has been able to eat some ice cream and applesauce. He has had no changes in urinary habits, and he has been able to pass nonbloody stool. Pt has no further complaints at this time. OBJECTIVE: VITALS: Please see below. GENERAL: Pt appears stated age, pale, and is propped up in bed in no acute distress. HEENT: Normocephalic, atraumatic. Multiple purulent lesions present in throat. Significant and profound posterior cervical and anterior cervical chain lymphadenopathy with tenderness. Pt's breath is pungent. Mild nasal congestion present. Pt is almost exclusively mouth breathing. CARDIOVASCULAR: Regular rate and rhythm. No murmurs, rubs, or gallops. PULMONARY: Clear to auscultation b/l. No wheezes, rales, or rhonchi. ABDOMEN: No rashes, bumps, or bruises. Bowel sounds present in all 4 quadrants. Soft, nontender. EXTREMITIES: No peripheral edema. PSYCHIATRIC: Pt is calm and cooperative. Full affect. Pt answers questions appropriately. ASSESSMENT: Pt is a 19-year-old male with recent diagnosis of infectious mononucleosis who presented to the [facility] emergency department complaining of worsening dyspnea, dysphagia, odynophagia, and coughing up blood clots and has been admitted for protection of airway and supportive care. PLAN: 1. Dyspnea, dysphagia, and odynophagia secondary to hugely enlarged enlarged tonsils with exudates secondary to mononucleosis - Consultation by ENT was requested and completed by Brendon Persaud MD, and his assistance is appreciated. - No airway compromise evident. Continue fluticasone nasal spray. - Continue supportive IV fluids and maintain elevated head position. Pt had moderate tolerance of full liquids diet today. - Continuing pain management with ketorolac, phenol spray, IV morphine, and viscous lidocaine. - If he continues to tolerate full liquids well, his steroid taper will begin today. Otherwise, we will reassess and consider starting the taper tomorrow. 2. Infectious mononucleosis - Continue supportive care. IVF, pain control. 3. Elevated transaminases, improving - Secondary to #2. Trending down. 5. DVT prophylaxis: Subcutaneous enoxaparin DISPOSITION: Discharge likely within 24-48 hours if continuing to tolerate full liquids diet. VS,Fishbone, I+O VS, Fishbone, I+O Laboratory Tests 07/19/19 06:25 Vital Signs Date Time Temp Pulse Resp B/P (MAP) Pulse Ox O2 Delivery O2 Flow Rate FiO2 07/19/19 06:45 98.6 84 20 140/64 (89) 97 Room Air 07/16/19 09:01 2.0 I&O- Last 24 Hours up to 6 AM 07/19/19 06:00 Intake Total 2000 ml Output Total 1850 ml Balance 150 ml GME ATTESTATION GME ATTESTATION My faculty preceptor for this patient encounter was physically present during the encounter and was fully available. All aspects of the patient interview, examination, medical decision making process, and medical care plan development were reviewed and approved by the faculty preceptor. The faculty preceptor is aware and concurs with the plan as stated in the body of this note and will attest to such by his/her cosignature. ABILIO SHARMA OMS-III Jul 19, 2019 07:44
[2019-07-19] MEDS ORDERED: ACETAMINOPHEN TAB 650MG DOSE (2X325MG) PO ONE (12:00)
[2019-07-19] MEDS: CHLORASEPTIC SPRAY MT PRN (12:05)
[2019-07-19] MEDS ORDERED: IBUP0.77 PO (12:51)
[2019-07-19] MEDS ORDERED: RABE1TAB PO (12:51)
[2019-07-19] MEDS ORDERED: PRED10TA2 PO (12:51)
[2019-07-19] MEDS ORDERED: CHLORSP MT (12:53)
[2019-07-19 14:00] VITALS: BP 154/98
--- NOTE | 2019-07-19 14:09 | DS.PDOC ---
Discharge Summary General Date of Admission Jul 16, 2019 at 08:46 Date of Discharge Jul 19, 2019 Attending Physician: WANDY APPIAH MD Specialist/Consultants Involve: EMILY HERNANDEZ MD Discharge Summary PROCEDURES PERFORMED DURING STAY: None. ADMITTING DIAGNOSES: 1. Dyspnea 2. Infectious mononucleosis 3. Elevated transaminases DISCHARGE DIAGNOSES: 1. Dyspnea, dysphagia, and odynophagia secondary to enlarged enlarged tonsils with exudates secondary to mononucleosis, improving 2. Dehydration secondary to poor oral intake, resolved 3. Infectious mononucleosis 4. Elevated transaminases, improving COMPLICATIONS/CHIEF COMPLAINT: SOB. HISTORY OF PRESENT ILLNESS: Patient is a 19-year-old male with no significant past medical history who was recently diagnosed with infectious mononucleosis and presented himself to the emergency department complaining of worsening malaise, dyspnea, drooling, nausea, vomiting, chest heaviness, and coughing up "bloody chunks." He stated that his nausea and vomiting was provoked by his vigorous episodes of coughing. Pt stated that he was unable to eat or drink for the 5 days before admission due to extreme odynophagia. He denied chest pain, headaches, and changes in vision. HOSPITAL COURSE: Pt was admitted to the intensive care unit for monitoring of respiratory status and supportive care. He was treated with IV steroids, fluid resuscitation, and pain management. His elevated transaminases began to trend down, he tolerated slow advancement of his diet to full liquids, and his respiratory status was monitored closely. His sputum improved from the "bloody chunks" to scant traces of blood. On day of discharge, he was stable, tolerating a full liquid diet, and not dyspneic. DISCHARGE MEDICATIONS: Please see below. ALLERGIES: Please see below. PHYSICAL EXAMINATION ON DISCHARGE: VITAL SIGNS: Please see below. GENERAL: Pt appears stated age, pale, and is propped up in bed in no acute distress. HEENT: Normocephalic, atraumatic. Multiple purulent lesions present in throat. Significant and profound posterior cervical and anterior cervical chain lymphadenopathy with tenderness. Pt's breath is pungent. Mild nasal congestion present. Pt is almost exclusively mouth breathing. CARDIOVASCULAR: Regular rate and rhythm. No murmurs, rubs, or gallops. PULMONARY: Clear to auscultation b/l. No wheezes, rales, or rhonchi. ABDOMEN: No rashes, bumps, or bruises. Bowel sounds present in all 4 quadrants. Soft, nontender. EXTREMITIES: No peripheral edema. PSYCHIATRIC: Pt is calm and cooperative. Full affect. Pt answers questions appropriately. LABORATORY DATA: Please see below. IMAGING: Abdominal ultrasound, per report: "Moderate splenomegaly. No splenic rupture. No perisplenic fluid." PROGNOSIS: Fair ACTIVITY: No contact sports or other activity which may result in abdominal tr auma. DIET: Full liquids, advance as tolerated. DISPOSITION: Discharge home. DISCHARGE INSTRUCTIONS: 1. Follow-up with primary care provider in 7-10 days. 2. Continue to advance diet as tolerated. 3. Return to emergency department in case of worsening pain, shortness of breath, or inability to eat/drink. ITEMS TO FOLLOWUP ON ON OUTPATIENT: Resolution of infectious mononucleosis. DISCHARGE CONDITION: Stable. TIME SPENT ON DISCHARGE: 35 minutes. Vital Signs/I&Os Vital Signs Date Time Temp Pulse Resp B/P (MAP) Pulse Ox O2 Delivery O2 Flow Rate FiO2 07/19/19 06:45 98.6 84 20 140/64 (89) 97 Room Air 07/16/19 09:01 2.0 I&O- Last 24 Hours up to 6 AM 07/19/19 06:00 Intake Total 2000 ml Output Total 1850 ml Balance 150 ml Laboratory Data Labs 24H Laboratory Tests 2 07/19/19 06:25: Nucleated Red Blood Cells % (auto) 0.0, Neutrophils 50, Lymphocytes (Manual) 15L, Monocytes (Manual) 9H, Metamyelocytes 1H, Atypical Lymphocytes 25H, Anisocytosis 1+, Platelet Estimate NORMAL, Anion Gap 8, Glomerular Filtration Ra te > 60.0, Calcium Level 7.3L, Phosphorus Level 2.7, Magnesium Level 1.8 CBC/BMP Laboratory Tests 07/19/19 06:25 Microbiology Microbiology 07/17/19 Group A Streptococcus Screen ([facility]) - Final, Complete 07/17/19 Group A Streptococcus Screen ([facility]) - Final, Complete Discharge Medications Scheduled Ibuprofen (Children's Ibuprofen) 100 Mg/5 Ml Oral.susp, 20 ML PO Q8H Prednisone (Prednisone) 10 Mg Tablet, 10 MG PO TAPER Take 4 tabs daily x 3 days, then 3 tabs daily x 3 days, then 2 tabs daily x 3 days, then 1 tab daily x 3 days and stop Rabeprazole Sodium (Rabeprazole Sodium) 20 Mg Tablet.dr, 1 TAB PO DAILY Scheduled PRN Phenol (Sore Throat [place]) 177 Ml [place], 1 SPRAY MT Q2HP PRN for SORE THROAT Allergies Coded Allergies: No Known Allergies (Unverified , 05/15/18) GME ATTESTATION GME ATTESTATION My faculty preceptor for this patient encounter was physically present during the encounter and was fully available. All aspects of the patient interview, examination, medical decision making process, and medical care plan development were reviewed and approved by the faculty preceptor. The faculty preceptor is aware and concurs with the plan as stated in the body of this note and will attest to such by his/her cosignature. ATTENDING NOTE I personally saw and evaluated the patient. I agree with the findings and the plan of care documented above in the resident's note. i personally spent 35 min utes in counselling and patient and coordinating his discharge. ABILIO SHARMA S-III Jul 19, 2019 14:09 WANDY APPIAH MD Jul 20, 2019 09:45
== END 2019-07-19 16:23 | disposition home or self-care (01) | DRG 866 ==
LOC: M ED 05:46 → M ED INP 08:46 → ENRESERV 09:03 → M ICU 09:29 → M PED 07-17 16:15 → M MS5PR 07-18 15:50
PROVIDERS: ADMIT Internal Medicine; ATTEND Internal Medicine Nephrology
DX: B27.90 Infectious mononucleosis, unspecified without complication (principal); E86.0 Dehydration; R13.10 Dysphagia, unspecified; R06.02 Shortness of breath; Z79.899 Other long term (current) drug therapy; R74.0 Nonspecific elevation of levels of transaminase and lactic acid dehydrogenase [LDH]

== ENCOUNTER 2019-07-21 08:35 | Inpatient (IN) | payer OTHER ==
[~2019-07-21] VITALS: Ht 172.7 cm; Wt 65.7 kg
[~2019-07-21 08:35] MED LIST changes: +ACET1TAB55 PO; +CHLORSP MT; +IBUP0.77 PO; +IBUP80TA PO; +PRED10TA2 PO; +RABE1TAB PO; +[UNRECOGNIZED DRUG - CODE] IM
[2019-07-21] MEDS ORDERED: NS 1,000 ML IV ONE ×2 (09:00→09:15)
[2019-07-21] MEDS ORDERED: LANSOPRAZOLE SUSPENSION 30 MG/10 ML ORAL SYRINGE (FIRST-LANSOPRAZOLE) PO SCH (09:00)
[2019-07-21] MEDS ORDERED: METOCLOPRAMIDE INJ 10MG/2ML VIAL (J2765) IV ONE (09:00)
[2019-07-21] MEDS ORDERED: ACETAMINOPHEN 500 MG TAB PO ONE (09:15)
[2019-07-21 09:28] LABS: HEMATOCRIT 44.1 % (42.0-52.0); HEMOGLOBIN 14.4 g/dl (13.5-17.5); MEAN CORPUSCULAR HEMOGLOBIN 27.7 pg (27.0-33.0); MEAN CORPUSCULAR HGB CONC 32.7 g/dl (32.0-36.5); MEAN CORPUSCULAR VOLUME 84.8 fl (80.0-96.0); PLATELET COUNT, AUTOMATED 183 10^3/uL (150-450)
--- NOTE | 2019-07-21 09:37 | REP ---
PA and lateral chest: Comparison is 04/09/2018. The lung cosme are clear. The cardiac size is normal. The alma rosa, mediastinum, and skeletal structures are unremarkable. Impression: Negative PA and lateral chest. There is no interval change. Electronically Signed by Odin Vargas MD 07/21/2019 09:29 A
[2019-07-21 09:52] LABS: ALBUMIN 2.5 GM/DL (3.2-5.2); ALT/SGPT 209 U/L (12-78); BILIRUBIN,TOTAL 1.8 MG/DL (0.2-1.0); BLOOD UREA NITROGEN 10 MG/DL (7-18); CALCIUM LEVEL 7.5 MG/DL (8.5-10.1); CARBON DIOXIDE LEVEL 28 MEQ/L (21-32); CHLORIDE LEVEL 96 MEQ/L (98-107); CREATININE FOR GFR 0.78 MG/DL (0.70-1.30); GLOMERULAR FILTRATION RATE > 60.0 (>60); GLUCOSE, FASTING 114 MG/DL (70-100); POTASSIUM SERUM 3.8 MEQ/L (3.5-5.1); SODIUM LEVEL 133 MEQ/L (136-145); TOTAL PROTEIN 6.5 GM/DL (6.4-8.2)
[2019-07-21 10:04] LABS: INFLUENZA A AMPLIFICATION NEGATIVE (NEGATIVE); INFLUENZA B AMPLIFICATION NEGATIVE (NEGATIVE)
[2019-07-21 10:06] LABS: ATYPICAL LYMPH 25 % (0-5); LYMPHOCYTES 30 % (16-44); MONOCYTES 11 % (0-5); NEUTROPHILS 30 % (28-66); PLATELET ESTIMATE NORMAL (NORMAL)
[2019-07-21] MEDS ORDERED: KETOROLAC 30 MG/ML VIAL (J1885) IV ONE (10:30)
[2019-07-21] MEDS ORDERED: ISOVUE-370 76% 100ML VIAL (Q9967) As Ordered ONE (10:58)
--- NOTE | 2019-07-21 11:35 | REPVR ---
PROCEDURE INFORMATION: Exam: CT Neck With Contrast Exam date and time: 07/21/2019 11:14 AM Age: 19 years old Clinical indication: Dyspnea / difficulty breathing; Additional info: Sore throat fever R/O abscess TECHNIQUE: Imaging protocol: Computed tomography images of the neck with intravenous contrast. Radiation optimization: All CT scans at this facility use at least one of these dose optimization techniques: automated exposure control; mA and/or kV adjustment per patient size (includes targeted exams where dose is matched to clinical indication); or iterative reconstruction. Contrast material: ISOVUE 370; Contrast volume: 75 ml; Contrast route: IV; COMPARISON: No relevant prior studies available. FINDINGS: Nasal cavity: There is marked enlargement of the adenoid and palatine tonsils, filling the nasopharynx and extending through the choana into the posterior nasal cavity bilaterally. The left palatine tonsil is heterogeneous with multiple locules of gas throughout the edematous tonsil likely from spontaneous perforation or iatrogenic abscess drainage. A 0.9 x 0.7 by 1.1 cm peritonsillar fluid collection remains in the more lateral aspect of the left palatine tonsils. Nasopharynx: Tonsillar enlargement severely narrows the nasopharyngeal and moderately narrows the or pharyngeal airway. Oropharynx: See Nasal Cavity Finding. Hypopharynx: Mucosal hyperenhancement throughout the pharynx and hypopharynx. Larynx: Unremarkable. Normal epiglottis. Retropharyngeal space: Unremarkable. Submandibular/Parotid glands: Normal. Glands are normal in size. Thyroid: Normal. No enlarged or calcified nodules. Lymph nodes: Extensive cervical lymphadenopathy, measuring up to 2.2 cm in the right level 2 region. No necrotic adenopathy. Trachea: Visualized trachea is unremarkable. Lungs: Unremarkable as visualized. Bones/joints: There is a 1.8 x 1.1 x 0.9 cm nonspecific but nonaggressive appearing peripherally sclerotic lesion in the left mandibular body posteriorly with a narrow zone of transition. Other findings: Study is moderately degraded by motion artifact. IMPRESSION: 1. Pharyngitis and severe tonsillitis with marked edema of the tonsils filling the nasopharynx and narrowing the airway. Spontaneous versus iatrogenic drainage of a left palatine tonsillar abscess, with small volume fluid remaining laterally. 2. Extensive cervical lymphadenopathy, which may be reactive although is greater than would be expected. Recommend clinical follow up to resolution. Electronically signed by: Trace Mcpherson On 07/21/2019 11:37:13 AM
[2019-07-21] MEDS ORDERED: CHLO0.5L MT (12:49)
[2019-07-21] MEDS ORDERED: ONDANSETRON 4 MG ORAL DISINTEGRATING TAB (Q0162 PER 1MG) SL PRN (13:30)
[2019-07-21 14:30] VITALS: BP 142/72
[2019-07-21] MEDS: D5W/0.9% SODIUM CHLORIDE 1,000 ML IV SCH ×2 (14:34→23:12)
[2019-07-21] MEDS ORDERED: ACETAMINOPHEN 650 MG SUPP PR PRN (15:00)
--- NOTE | 2019-07-21 15:02 | HPEPDOC ---
General Date of Admission Jul 21, 2019 at 13:10 Date of Service: Jul 21, 2019 Chief Complaint The patient is a 19-year-old male admitted with a reason for visit of Acute Follicular Tonsillitis Infectious [place]. 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 He was seen by ENT then and was given a steroid taper, no antibiotics as all his cultures were negative. He comes back today as again in severe pain and unable to swallow liquids. Says his is again coughing while he is trying to swallow. He did say he took the steroid yesterday as instructed. he was noted to be febrile in the ed to 101. He also complained of again coughing up blood all night and also of having black diarrhea. He also complained of severe bad breath and draining of pus from the tonsils. CT of the neck showed Pharyngitis and severe tonsillitis with marked edema of the tonsils filling the nasopharynx and narrowing the airway. Spontaneous versus iatrogenic drainage of a left palatine tonsillar abscess, with small volume fluid remaining laterally. Extensive cervical lymphadenopathy, which may be reactive although is greater than would be expected. Recommend clinical follow up to resolution. He was admitted for Peritonsillar abscess, severe tonsillitis, pharyngitis, severe infectious mononucleosis and unable to tolerate po diet, dehydration and questionable GIB. Home Medications Scheduled PRN Phenol (Chloraseptic) 177 Ml [place].pump, 1 SPRAY MT Q2H PRN for SORE THROAT, (Reported) Allergies Coded Allergies: No Known Allergies (Unverified , 05/15/18) Past Medical History Medical History Reflux esophagitis. Infectious mononucleosis. Family History Significant Family History: Diabetes (father), Heart disease (mother from heart failure) Social History * Smoker: Denies Alcohol: rarely A-FIB/CHADSVASC A-FIB History Current/History of A-Fib/PAF?: No Review of Systems Constitutional: Reports: Fever, Weakness, Fatigue Eyes: Denies: Pain, Vision change ENT: Reports: Dysphagia, Sore Throat Skin: Denies: Rash, Lesions, Breakdown Pulmonary: Reports: Cough; Denies: Dyspnea Cardiovascular: Denies: Chest Pain, Palpitations, Orthopnea, Paroxysmal Noc. Dyspnea, Lt Headedness Gastrointestinal: Reports: Diarrhea, Melena; Denies: Nausea, Vomiting, Abdominal Pain Genitourinary: Denies: Dysuria, Frequency, Incontinence, Retention Hematologic: Denies: Bruising, Bleeding Excessively Neurological: Denies: Weakness, Numbness, Change in speech, Confusion Physical Examination General Exam: Positive: Alert, Cooperative, No Acute Distress Eye Exam: Positive: PERRLA, Conjunctiva & lids normal, EOMI; Negative: Sclera icteric ENT Exam: Positive: Atraumatic, Tongue Midline, Pharyngeal Edema, Nares Patent, Other ENT (bilateral enlaged tonsils with pustules and drainage of pus seen more on the left, severe bad odor. ) Neck Exam: Positive: Supple, Lymphadenopathy (bilateral cervica lymph adenopathy); Negative: JVD, thyromegaly Chest Exam: Positive: Clear to auscultation, Normal air movement Heart Exam: Positive: Rate Normal, Regular Rhythm, Normal S1, Normal S2; Negative: Murmurs, Rubs Abdomen Exam: Positive: Normal bowel sounds, Soft; Negative: Tenderness, Hepatospenomegaly Extremity Exam: Positive: Normal pulses; Negative: Clubbing, Cyanosis, Edema Skin Exam: Positive: Nl turgor and temperature; Negative: Breakdown, Lesion Vital Signs Vital Signs Date Time Temp Pulse Resp B/P (MAP) Pulse Ox O2 Delivery O2 Flow Rate FiO2 07/21/19 14:10 137/65 (89) 07/21/19 14:10 97.5 07/21/19 13:50 51 20 95 Room Air Laboratory Data Labs 24H Laboratory Tests 2 07/21/19 09:01: Lymphocytes # (Auto) , Nucleated Red Blood Cells % (auto) 0.0, Neutrophils 30, Band Neutrophils 4, Lymphocytes (Manual) 30, Monocytes (Manual) 11H, Atypical Lymphocytes 25H, Platelet Estimate NORMAL, Anion Gap 9, Glomerular Filtration Rate > 60.0, Calcium Level 7.5L, Total Bilirubin 1.8H, Aspartate Amino Transf (AST/SGOT) 89H, Alanine Aminotransferase (ALT/SGPT) 209H, Alkaline Phosphatase 170H, Total Protein 6.5, Albumin 2.5L, Albumin/Globulin Ratio 0.63L 07/21/19 09:04: Lactic Acid Level 1.5 07/21/19 09:22: Influenza Type A (RT-PCR) NEGATIVE, Influenza Type B (RT-PCR) NEGATIVE CBC/BMP Laboratory Tests 07/21/19 09:01 Microbiology Microbiology 07/21/19 Group A Streptococcus Screen ([facility]), Received Pending 07/21/19 Blood Culture, Received Pending 07/21/19 Blood Culture, Received Pending Assessment/Plan 19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 He was seen by ENT then and was given a steroid taper, no antibiotics as all his cultures were negative. He comes back today as again in severe pain and unable to swallow liquids. Says his is again coughing while he is trying to swallow. He did say he took the steroid yesterday as instructed. he was noted to be febrile in the ed to 101. He also complained of again coughing up blood all night and also of having black diarrhea. He also complained of severe bad breath and draining of pus from the tonsils. CT of the neck showed P haryngitis and severe tonsillitis with marked edema of the tonsils filling the nasopharynx and narrowing the airway. Spontaneous versus iatrogenic drainage of a left palatine tonsillar abscess, with small volume fluid remaining laterally. Extensive cervical lymphadenopathy, which may be reactive although is greater than would be expected. Recommend clinical follow up to resolution. He was admitted for Peritonsillar abscess, severe tonsillitis, pharyngitis, severe infectious mononucleosis and unable to tolerate po diet, dehydration and questionable GIB. Severe tonsillitis, peritonsillar abscess, severe pharyngitis, enlargement of adenoids. Odynophagia, dysphagia, dehydration due to Infectious mononucloesis IVF, toradol, methyl prednisone full liquid diet if tolerated. will check HIV patient agreeable. ED physician discussed with ENT surgeon . Advised to hold off on antibiotics to continue steroid taper. Reflux esophagitis now going to be on steroids will give PPI bid. Transaminitis from mono improving Atypical lymphocytosis from mono. Hemoptysis and black diarrhea patent probably having some phlegm with blood in it from local trauma during coughing and he may be swallowing it. I suspect whether he has real heidi or not but with h/o reflux esophagitis he may be having some erosions with the steroid use, sickness and being unable to eat will check fecal occult blood monitor HH continue PPI. Plan / VTE VTE Prophylaxis Ordered?: Yes WANDY APPIAH MD Jul 21, 2019 15:02
[2019-07-21] MEDS: PANTOPRAZOLE 40MG INJ (PROTONIX) (C9113) IV SCH (15:46)
[2019-07-21] MEDS: methylPREDNISolone INJ 40 MG/1 ML VIAL (J2920) IV SCH (15:46)
[2019-07-21] MEDS ORDERED: IBUPROFEN 100 MG/5 ML SUSP UDC DYE FREE PO SCH (16:00)
[2019-07-21] MEDS: KETOROLAC 30 MG/ML VIAL (J1885) IV PRN ×2 (17:14→23:11)
[2019-07-21 20:00] VITALS: BP 135/74
[2019-07-22 04:00] VITALS: BP 129/71
[2019-07-22] MEDS: PANTOPRAZOLE 40MG INJ (PROTONIX) (C9113) IV SCH ×2 (04:11→15:34)
[2019-07-22] MEDS: KETOROLAC 30 MG/ML VIAL (J1885) IV PRN ×4 (05:16→23:54)
[2019-07-22 07:02] LABS: HEMATOCRIT 38.8 % (42.0-52.0); HEMOGLOBIN 12.6 g/dl (13.5-17.5); MEAN CORPUSCULAR HEMOGLOBIN 27.8 pg (27.0-33.0); MEAN CORPUSCULAR HGB CONC 32.5 g/dl (32.0-36.5); MEAN CORPUSCULAR VOLUME 85.7 fl (80.0-96.0); PLATELET COUNT, AUTOMATED 175 10^3/uL (150-450); RED BLOOD COUNT 4.53 10^6/uL (4.30-6.10); WHITE BLOOD COUNT 8.7 10^3/uL (4.0-10.0)
[2019-07-22 07:35] LABS: ALBUMIN 2.1 GM/DL (3.2-5.2); ALT/SGPT 152 U/L (12-78); BILIRUBIN,TOTAL 0.9 MG/DL (0.2-1.0); BLOOD UREA NITROGEN 8 MG/DL (7-18); CALCIUM LEVEL 7.4 MG/DL (8.5-10.1); CARBON DIOXIDE LEVEL 28 MEQ/L (21-32); CHLORIDE LEVEL 105 MEQ/L (98-107); CREATININE FOR GFR 0.64 MG/DL (0.70-1.30); GLOMERULAR FILTRATION RATE > 60.0 (>60); GLUCOSE, FASTING 179 MG/DL (70-100); POTASSIUM SERUM 3.6 MEQ/L (3.5-5.1); SODIUM LEVEL 138 MEQ/L (136-145); TOTAL PROTEIN 5.9 GM/DL (6.4-8.2)
[2019-07-22 08:00] VITALS: BP 122/64
[2019-07-22] MEDS: D5W/0.9% SODIUM CHLORIDE 1,000 ML IV SCH ×2 (08:32→21:02)
[2019-07-22 12:17] LABS: HIV 1&2 SCREEN CENTAUR NEGATIVE (NEGATIVE)
[2019-07-22] MEDS: methylPREDNISolone INJ 40 MG/1 ML VIAL (J2920) IV SCH (15:00)
[2019-07-22] MEDS: CHLORASEPTIC SPRAY MT PRN ×3 (15:18→20:46)
[2019-07-22 16:00] VITALS: BP 131/62
--- NOTE | 2019-07-22 18:24 | IPNPDOC ---
Subjective Date Seen The patient was seen on 07/22/19. Subjective Chief Complaint/HPI Continues to have coughing with spitting out of oral secretions mixed with little blood. No fever. Continues to have severe sore throat and difficulty in swallowing however from I/O documentation it seems like he took more than 2000 ml PO yesterday so definitely he is doing better with oral intake. Objective Physical Examination General Exam: Positive: Alert, Cooperative, No Acute Distress Eye Exam: Positive: PERRLA, Conjunctiva & lids normal, EOMI; Negative: Sclera icteric ENT Exam: Positive: Atraumatic, Tongue Midline, Pharyngeal Edema, Nares Patent, Other ENT (bilateral enlaged tonsils with pustules and drainage of pus seen more on the left, severe bad odor. 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 He was seen by ENT then and was given a steroid taper, no antibiotics as all his cultures were negative. He comes back today as again in severe pain and unable to swallow liquids. Says his is again coughing while he is trying to swallow. He did say he took the steroid yesterday as instructed. he was noted to be febrile in the ed to 101. He also complained of again coughing up blood all night and also of having black diarrhea. He also complained of severe bad breath and draining of pus from the tonsils. CT of the neck showed Pharyngitis and severe tonsillitis with marked edema of the tonsils filling the nasopharynx and narrowing the airway. Spontaneous versus iatrogenic drainage of a left palatine tonsillar abscess, with small volume fluid remaining laterally. Extensive cervical lymphadenopathy, which may be reactive although is greater than would be expected. Recommend clinical follow up to resolution. He was admitted for Peritonsillar abscess, severe tonsillitis, pharyngitis, severe infectious mononucleosis and unable to tolerate po diet, dehydration and questionable GIB. Severe tonsillitis, peritonsillar abscess, severe pharyngitis, enlargement of adenoids. Odynophagia, dysphagia, dehydration due to Infectious mononucloesis Continue IVF, toradol, methyl prednisone full liquid diet HIV negative ED physician discussed with ENT surgeon Dr Zuñiga. Advised to hold off on antibiotics to continue steroid taper. Chlorhexidine mouth wash. reconsulted ENT Dr Olson. He will evaluate him. Reflux esophagitis now on steroids will give PPI bid. Transaminitis from mono improving Atypical lymphocytosis from mono. Hemoptysis and black diarrhea patent probably having some phlegm with blood in it from local trauma during coughing and he may be swallowing it. I suspect whether he has real heidi or not but with h/o reflux esophagitis he may be having some erosions with the steroid use, sickness and being unable to eat fecal occult blood positive possibly from swallowed blood. HH stable continue PPI. VS, I&O, 24H, Fishbone Vital Signs/I&O Vital Signs Date Time Temp Pulse Resp B/P (MAP) Pulse Ox O2 Delivery O2 Flow Rate FiO2 07/22/19 08:00 97.4 68 20 122/64 (83) 100 Room Air I&O- Last 24 Hours up to 6 AM 07/22/19 06:00 Intake Total 5850 ml Output Total 1085 ml Balance 4765 ml Laboratory Data 24H LABS Laboratory Tests 2 07/22/19 06:46: Nucleated Red Blood Cells % (auto) 0.0, Anion Gap 5L, Glomerular Filtration Rate > 60.0, Calcium Level 7.4L, Total Bilirubin 0.9, Aspartate Amino Transf (AST/SGOT) 60H, Alanine Aminotransferase (ALT/SGPT) 152H, Alkaline Phosphatase 146H, Total Protein 5.9L, Albumin 2.1L, Albumin/Globulin Ratio 0.55L CBC/BMP Laboratory Tests 2/3/20 06:46 Microbiology Microbiology 07/21/19 Stool Occult Blood ([facility]) - Final, Complete 07/21/19 Group A Streptococcus Screen ([facility]) - Final, Complete 07/21/19 Blood Culture - Preliminary, Resulted No growth after 24 hours . All specim... 07/21/19 Blood Culture - Preliminary, Resulted No growth after 24 hours . All specim... WANDY APPIAH MD Jul 22, 2019 14:06
[2019-07-22 20:00] VITALS: BP 136/88
[2019-07-23 04:00] VITALS: BP 134/84
[2019-07-23] MEDS: PANTOPRAZOLE 40MG INJ (PROTONIX) (C9113) IV SCH ×2 (04:32→16:00)
[2019-07-23] MEDS: CHLORASEPTIC SPRAY MT PRN ×2 (04:39→07:30)
[2019-07-23 08:00] VITALS: BP 158/76
[2019-07-23] MEDS: KETOROLAC 30 MG/ML VIAL (J1885) IV PRN (08:27)
[2019-07-23] MEDS: CLINDAMYCIN 300 MG in IV 1 EA IV SCH ×2 (10:55→17:59)
--- NOTE | 2019-07-23 14:02 | IPNPDOC ---
Date Seen The patient was seen on 07/23/19. Progress Note SUBJECTIVE: Patient seen and examined this morning, Continues to complain of sore throat but voice is better, for he is able articulate words better. He took a shower this am, and was able to tolerate some pureed diet. He denies chest pain, shortness breath, nausea, vomiting, fevers and chills. Does continue to have oral secretions with blood but it is improving. OBJECTIVE PHYSICAL EXAMINATION: VITAL SIGNS: Please see below. GENERAL: Pleasant 19 year old male sitting up in bed awake alert oriented speaking in complete sentences no acute distress HEENT: Normocephalic, pupils equal round and reactive, dried blood/scabbing on the left nare/upper left with no ward crusting, bilateral enlarged tonsil improving but continue to have pus and some drainage, oral order improving but still foul. Bilateral non-tender cervical anterior and posterior lymphadenopathy CARDIOVASCULAR: S1 S2 regular no additional heart sounds appreciated. RESPIRATORY: Clear to auscultation bilaterally. ABDOMINAL: Bowel sounds present abdomen soft. Slight discomfort over spleen with mild splenomegaly EXTREMITIES: No clubbing cyanosis or edema NEUROLOGICAL: No gross focal deficits appreciated PSYCHOLOGICAL: Appropriate LABORATORY DATA, MICROBIOLOGY: Please see below. IMAGING STUDIES: Chest xray - Impression: Negative PA and lateral chest. There is no interval change. ASSESSMENT AND PLAN: This is a 19-year-old male with Infectious Mononucleosis. PROBLEMS: 1. Infectious Monoculoes with small palatine tonsillar abscess -continue to have severe pharyngitis, enlargement of adenoids and tonsillitis. -c/w solumedrol and taper per ENT recommendations. -start clindamycin 300mg q8h x2 days -Discontinue toradol, start motrin [id number] xq6Hp prn for pain. -continue with pureed diet, -phencol spray and chlorhexidine on order for thorat discomfort -Dr. Ruggiero, ENT, consulted will reevaluate him today 2. Reflux Esophagitis with black diarrhea,secondary to problem 1 -stool occult was positive but.hemodynamically stable -c/w with steroid and ppi BID and will monitor H/H 3. Transaminitis and spleenomegely 2/2 to mono. improving. DVT prophylaxis: Teds DISPOSITION: Clinical improvement, c/w iv antibiotics and diet VS, I&O, 24H, Fishbone Vital Signs/I&O Vital Signs Date Time Temp Pulse Resp B/P (MAP) Pulse Ox O2 Delivery O2 Flow Rate FiO2 07/23/19 08:00 99.6 94 22 158/76 (103) 99 Room Air I&O- Last 24 Hours up to 6 AM 07/23/19 06:00 Intake Total 4380 ml Output Total 1000 ml Balance 3380 ml Laboratory Data Microbiology Microbiology 07/21/19 Stool Occult Blood ([facility]) - Final, Complete 07/21/19 Group A Streptococcus Screen ([facility]) - Final, Complete 07/21/19 Blood Culture - Preliminary, Resulted No Growth after 48 hours. All Specime... 07/21/19 Blood Culture - Preliminary, Resulted No Growth after 48 hours. All Specime... GME ATTESTATION GME ATTESTATION My faculty preceptor for this patient encounter was physically present during the encounter and was fully available. All aspects of the patient interview, examination, medical decision making process, and medical care plan development were reviewed and approved by the faculty preceptor. The faculty preceptor is aware and concurs with the plan as stated in the body of this note and will attest to such by his/her cosignature. ATTENDING NOTE 19 yo man with infectious mononucleosis c/b small draining palatine tonsillar abscess and dysphagia and odynophagia who was admitted after intolerance of PO in the setting of not starting his prescribed steroids, now doing much better on steroids, s/p ENT evaluation and starting 2d course of clindamycin and pain control. MARILY PASTOR DO Jul 23, 2019 14:02 GIOVANNY GODFREY MD Jul 24, 2019 10:32
[2019-07-23] MEDS: methylPREDNISolone INJ 40 MG/1 ML VIAL (J2920) IV SCH (14:45)
[2019-07-23] MEDS: D5W/0.9% SODIUM CHLORIDE 1,000 ML IV SCH (14:48)
[2019-07-23 16:00] VITALS: BP 141/73
[2019-07-23 20:00] VITALS: BP 133/63
[2019-07-23] MEDS: IBUPROFEN 100 MG/5 ML SUSP UDC DYE FREE PO PRN (20:19)
[2019-07-24] MEDS: CLINDAMYCIN 300 MG in IV 1 EA IV SCH ×3 (02:04→18:00)
[2019-07-24 02:08] VITALS: BP 120/61
[2019-07-24] MEDS: PANTOPRAZOLE 40MG INJ (PROTONIX) (C9113) IV SCH ×2 (04:22→15:51)
[2019-07-24] MEDS: IBUPROFEN 100 MG/5 ML SUSP UDC DYE FREE PO PRN (06:52)
[2019-07-24 07:30] VITALS: BP 139/65
[2019-07-24 08:40] LABS: HEMATOCRIT 39.4 % (42.0-52.0); HEMOGLOBIN 12.4 g/dl (13.5-17.5); MEAN CORPUSCULAR HEMOGLOBIN 27.7 pg (27.0-33.0); MEAN CORPUSCULAR HGB CONC 31.5 g/dl (32.0-36.5); MEAN CORPUSCULAR VOLUME 87.9 fl (80.0-96.0); PLATELET COUNT, AUTOMATED 209 10^3/uL (150-450); RED BLOOD COUNT 4.48 10^6/uL (4.30-6.10); WHITE BLOOD COUNT 4.9 10^3/uL (4.0-10.0)
[2019-07-24 08:56] LABS: BLOOD UREA NITROGEN 7 MG/DL (7-18); CALCIUM LEVEL 7.6 MG/DL (8.5-10.1); CARBON DIOXIDE LEVEL 32 MEQ/L (21-32); CHLORIDE LEVEL 105 MEQ/L (98-107); CREATININE FOR GFR 0.56 MG/DL (0.70-1.30); GLOMERULAR FILTRATION RATE > 60.0 (>60); GLUCOSE, FASTING 111 MG/DL (70-100); MAGNESIUM LEVEL 2.2 MG/DL (1.8-2.4); POTASSIUM SERUM 3.8 MEQ/L (3.5-5.1); SODIUM LEVEL 141 MEQ/L (136-145)
--- NOTE | 2019-07-24 12:07 | IPNPDOC ---
Date Seen The patient was seen on 07/24/19. Progress Note SUBJECTIVE: Patient seen and examined this morning, he is in much better spirits this morning. His notices sore throat has improved a lot in the last 24 hours since the antibiotics started. He would like to have a regular diet today and see if he can tolerate it. He denies chest pain, shortness breath, nausea, vomiting, fevers and chills. He notices the abrasion on the top of the lip has improved as well. He has no other complaints this morning. OBJECTIVE PHYSICAL EXAMINATION: VITAL SIGNS: Please see below. GENERAL: Pleasant 19 year old male sitting up in bed awake alert oriented speaking in complete sentences no acute distress HEENT: Normocephalic, pupils equal round and reactive, dried blood/scabbing on the left nare/upper left with no ward crusting (improved) bilateral enlarged tonsils (continue to improve) but continue to have some pus with some drainage, oral oder approved significantly. Bilateral non-tender cervical anterior and posterior lymphadenopathy but not as pronounced. CARDIOVASCULAR: S1 S2 regular no additional heart sounds appreciated. RESPIRATORY: Clear to auscultation bilaterally. ABDOMINAL: Bowel sounds present abdomen soft. Slight discomfort over spleen with mild splenomegaly EXTREMITIES: No clubbing cyanosis or edema NEUROLOGICAL: No gross focal deficits appreciated PSYCHOLOGICAL: Appropriate LABORATORY DATA, MICROBIOLOGY: Please see below. IMAGING STUDIES: Chest xray - Impression: Negative PA and lateral chest. There is no interval change. ASSESSMENT AND PLAN: This is a 19-year-old male with Infectious Mononucleosis. PROBLEMS: 1. Infectious Monoculoes with small palatine tonsillar abscess (improving) -c/w solumedrol 30mg and taper on discharge -c/w clindamycin 300mg q8h for 2 days total -c/w motrin [id number] xq6Hp prn for pain. -Transition to regular diet -phencol spray and chlorhexidine on order for thorat discomfort -Dr. Ruggiero, ENT, consulted will reevaluate him today 2. Reflux Esophagitis with black diarrhea,secondary to problem 1 -stool occult was positive but.hemodynamically stable -c/w with steroid and ppi BID and will monitor H/H 3. Transaminitis and spleenomegely 2/2 to mono. improving. DVT prophylaxis: Teds DISPOSITION: Clinical improvement, c/w iv antibiotics and diet. possible discharge tomorrow after 2days of clindmycin completed. VS, I&O, 24H, Fishbone Vital Signs/I&O Vital Signs Date Time Temp Pulse Resp B/P (MAP) Pulse Ox O2 Delivery O2 Flow Rate FiO2 07/24/19 07:30 97.6 62 18 139/65 (89) 99 Room Air I&O- Last 24 Hours up to 6 AM 07/24/19 06:00 Intake Total 2985 ml Output Total 1475 ml Balance 1510 ml Laboratory Data 24H LABS Laboratory Tests 2 07/24/19 08:15: Nucleated Red Blood Cells % (auto) 0.0, Anion Gap 4L, Glomerular Filtration Rate > 60.0, Calcium Level 7.6L, Magnesium Level 2.2 CBC/BMP Laboratory Tests 07/24/19 08:15 Microbiology Microbiology 07/21/19 Stool Occult Blood ([facility]) - Final, Complete 07/21/19 Group A Streptococcus Screen ([facility]) - Final, Complete 07/21/19 Blood Culture - Preliminary, Resulted No Growth after 72 hours. All specime... 07/21/19 Blood Culture - Preliminary, Resulted No Growth after 72 hours. All specime... GME ATTESTATION GME ATTESTATION My faculty preceptor for this patient encounter was physically present during the encounter and was fully available. All aspects of the patient interview, examination, medical decision making process, and medical care plan development were reviewed and approved by the faculty preceptor. The faculty preceptor is aware and concurs with the plan as stated in the body of this note and will attest to such by his/her cosignature. ATTENDING NOTE Mr. Adam is doing much better today and is willing to try advancing his diet and his oral hygiene has also improved. ENT saw him and suggested clindamycin IV for 2 days with ongoing steroids. We will likely discharge him home tomorrow 07/25 pending ENT recs on antibiotics and steroids. MARILY PASTOR DO Jul 24, 2019 12:07 GIOVANNY GODFREY MD Jul 25, 2019 12:24
[2019-07-24] MEDS: methylPREDNISolone INJ 40 MG/1 ML VIAL (J2920) IV SCH (14:34)
[2019-07-24 16:00] VITALS: BP 148/71
[2019-07-24 20:00] VITALS: BP 131/65
[2019-07-24] MEDS ORDERED: CLEO300C2 PO (22:35)
[2019-07-24] MEDS ORDERED: PANT40TA3 PO (22:35)
[2019-07-24] MEDS ORDERED: PRED10TA2 PO (22:35)
[2019-07-25] MEDS: CLINDAMYCIN 300 MG in IV 1 EA IV SCH (01:41)
[2019-07-25 04:00] VITALS: BP 119/58
[2019-07-25 07:01] LABS: HEMATOCRIT 38.7 % (42.0-52.0); HEMOGLOBIN 12.8 g/dl (13.5-17.5); MEAN CORPUSCULAR HEMOGLOBIN 28.4 pg (27.0-33.0); MEAN CORPUSCULAR HGB CONC 33.1 g/dl (32.0-36.5); MEAN CORPUSCULAR VOLUME 85.8 fl (80.0-96.0); PLATELET COUNT, AUTOMATED 268 10^3/uL (150-450); RED BLOOD COUNT 4.51 10^6/uL (4.30-6.10); WHITE BLOOD COUNT 6.1 10^3/uL (4.0-10.0)
--- NOTE | 2019-07-25 07:07 | DS.PDOC ---
Discharge Summary General Date of Admission Jul 21, 2019 at 13:10 Date of Discharge 07/25/2019 Discharge Summary DISCHARGE DIAGNOSIS: Infectious Monoculoes with small palatine tonsillar abscess SECONDARY DIAGNOSIS: 1. Reflux Esophagitis with black diarrhea 2. Transaminitis and spleenomegely 2/2 to mono PROCEDURES PERFORMED DURING STAY: None. CONSULTANTS:Dr. 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 On the day of discharge at that admission he was able to swallow a small amount and was tolerating a liquid diet. He then returned to the ER on July 21 due to severe pain and unable to swallow liquids. He states he took the steroids as prescribed but noticed he was febrile when he returned to the ER at a temp of 101. At this admission he was coughing up blood all night was having black diarrhea, halitosis and drainage from his tonsils. In the ER here a CT of the neck which showed pharyngitis as well as left pontine tonsillar abscess. He was admitted to [facility] and was started on IV steroids. He was then evaluated by ENT who reviewed the images and recommended clindamycin 300 mg every 8 hours for 2 days. They also recommended to continue with the steroid taper and no high-dose steroids is indicated. The patient on the day of discharge was able to tolerate a regular diet and follow liquids with no problem. Pain was controlled with Motrin suspension and advised that he can continue this outpatient while taking Protonix 40 mg twice a day by mouth protect his GI tract. He will be discharged with antibiotics for 8 more days, He was agreeable to all the plan stated to him today. Advised that he is to follow- up with his PCP in 7-10 days. DISCHARGE MEDICATIONS: Please see below. ALLERGIES: Please see below. SUBJECTIVE: Patient seen and examined this morning. States is feeling much better and is agreeable for discharge. He has no complaints today. Has noticed his symptoms have continued to improve while he is being admitted. He denies chest pain, shortness, breath, nausea, vomiting, fevers, or chills OBJECTIVE: PHYSICAL EXAMINATION: VITAL SIGNS: Please see below. GENERAL: Pleasant 19 year old male sitting up in bed awake alert oriented speaking in complete sentences no acute distress HEENT: Normocephalic, pupils equal round and reactive, dried blood/scabbing on the left nare/upper left with no ward crusting (improved) bilateral enlarged tonsils (continue to improve) but continue to have some pus with some drainage, oral oder approved significantly. Bilateral non-tender cervical anterior and posterior lymphadenopathy but not as pronounced. CARDIOVASCULAR: S1 S2 regular no additional heart sounds appreciated. RESPIRATORY: Clear to auscultation bilaterally. ABDOMINAL: Bowel sounds present abdomen soft. Slight discomfort over spleen with mild splenomegaly EXTREMITIES: No clubbing cyanosis or edema NEUROLOGICAL: No gross focal deficits appreciated PSYCHOLOGICAL: Appropriate LABORATORY DATA, MICROBIOLOGY: Please see below. IMAGING STUDIES: 07/21/2019 Chest xray - Impression: Negative PA and lateral chest. There is no interval change. 07/21/[address] IMPRESSION: 1. Pharyngitis and severe tonsillitis with marked edema of the tonsils filling the nasopharynx and narrowing the airway. Spontaneous versus iatrogenic drainage of a left palatine tonsillar abscess, with small volume fluid remaining laterally. 2. Extensive cervical lymphadenopathy, which may be reactive although is greater than would be expected. Recommend clinical follow up to resolution. DISPOSITION: Home DISCHARGE CONDITION: Improved and Stable. FOLLOW UP: 1. Follow-up with your PCP in 7-10 days 2. Please complete antibiotics and prednisone taper as prescribed which has been sent to your pharmacy at [facility]. 3. Please take Protonix 40 mg twice a day while taking prednisone and as needed Motrin to protect your GI tract. 4. Please abstain from doing contact sports or any activity that can cause injury to the left upper quadrant due to your splenomegaly. 5. If your symptoms were to return or worsen please call your PCP or return to the ER. ACTIVITY: No contact sports for at least 3-6 months. DIET: As prior to admission TIME SPENT ON DISCHARGE: 50 minutes Vital Signs/I&Os Vital Signs Date Time Temp Pulse Resp B/P (MAP) Pulse Ox O2 Delivery O2 Flow Rate FiO2 07/25/19 04:00 96.5 51 16 119/58 (78) 99 Room Air I&O- Last 24 Hours up to 6 AM 07/25/19 06:00 Intake Total 2150 ml Output Total 1625 ml Balance 525 ml Laboratory Data Labs 24H Laboratory Tests 2 07/24/19 08:15: Nucleated Red Blood Cells % (auto) 0.0, Anion Gap 4L, Glomerular Filtration Rate > 60.0, Calcium Level 7.6L, Magnesium Level 2.2 07/25/19 06:52: Nucleated Red Blood Cells % (auto) 0.0 CBC/BMP Laboratory Tests 07/24/19 08:15 07/25/19 06:52 Microbiology Microbiology 07/21/19 Stool Occult Blood ([facility]) - Final, Complete 07/21/19 Group A Streptococcus Screen ([facility]) - Final, Complete 07/21/19 Blood Culture - Preliminary, Resulted No Growth after 72 hours. All specime... 07/21/19 Blood Culture - Preliminary, Resulted No Growth after 72 hours. All specime... Discharge Medications Scheduled Clindamycin Hcl (Cleocin HCl) 300 Mg Capsule, 300 MG PO TID Pantoprazole Sodium (Pantoprazole Sodium) 40 Mg Tablet.dr, 40 MG PO BID Prednisone (Prednisone) 10 Mg Tablet, 10 MG PO TAPER Take 2 tabs daily x 3 days, then 1 tab daily x 3 days and stop Scheduled PRN Phenol (Chloraseptic) 177 Ml House.pump, 1 SPRAY MT Q2H PRN for SORE THROAT, (Reported) Allergies Coded Allergies: No Known Allergies (Unverified , 05/15/18) GME ATTESTATION GME ATTESTATION My faculty preceptor for this patient encounter was physically present during the encounter and was fully available. All aspects of the patient interview, examination, medical decision making process, and medical care plan development were reviewed and approved by the faculty preceptor. The faculty preceptor is aware and concurs with the plan as stated in the body of this note and will attest to such by his/her cosignature. ATTENDING NOTE Andreas Adam is a young member of the who was admitted with acute mononucleosis c/b drainaing paratonsillor abscess with dysphagia and odynophagia who is now being discharged home after evaluation by ENT and placed on steroids and clindamycin with significant improvement and now being discharged to complete a 10d course of clinda as well as a pred taper. MARILY PASTOR DO Jul 25, 2019 07:07 GIOVANNY GODFREY MD Jul 26, 2019 09:04
[2019-07-25 07:27] LABS: BLOOD UREA NITROGEN 8 MG/DL (7-18); CALCIUM LEVEL 7.7 MG/DL (8.5-10.1); CARBON DIOXIDE LEVEL 30 MEQ/L (21-32); CHLORIDE LEVEL 105 MEQ/L (98-107); CREATININE FOR GFR 0.57 MG/DL (0.70-1.30); GLOMERULAR FILTRATION RATE > 60.0 (>60); GLUCOSE, FASTING 92 MG/DL (70-100); MAGNESIUM LEVEL 2.1 MG/DL (1.8-2.4); POTASSIUM SERUM 4.2 MEQ/L (3.5-5.1); SODIUM LEVEL 141 MEQ/L (136-145)
[2019-07-25 08:00] VITALS: BP 142/72
[2019-07-25] MEDS ORDERED: PANTOPRAZOLE 40MG TAB (PROTONIX) PO SCH (09:00)
== END 2019-07-25 14:00 | disposition home or self-care (01) | DRG 392 ==
LOC: M ED 08:35 → M ED INP 13:10 → ENRESERV 13:39 → M PED 14:25
PROVIDERS: ADMIT Internal Medicine Nephrology; ATTEND Internal Medicine Nephrology
DX: K21.0 Gastro-esophageal reflux disease with esophagitis (principal); J36 Peritonsillar abscess; B27.90 Infectious mononucleosis, unspecified without complication; E86.0 Dehydration